=== PATIENT | female | born 1995 | race Hispanic/Latino ===

== ENCOUNTER 2017-11-03 16:24 | Emergency (ER) | payer SELFPAY ==
[~2017-11-03] VITALS: Ht 162.6 cm; Wt 69.5 kg
[2017-11-03 18:41] VITALS: BP 112/66
== END 2017-11-03 18:42 | disposition home or self-care (01) ==
LOC: EME 16:24
PROC: 0RSKXZZ Reposition Left Shoulder Joint, External Approach (ICD-10-PCS; principal; 2017-11-03)
DX: S43.005A Unspecified dislocation of left shoulder joint, initial encounter (principal); W10.9XXA Fall (on) (from) unspecified stairs and steps, initial encounter; Z87.891 Personal history of nicotine dependence
CPT/HCPCS: 73030; 99281; 99284